=== PATIENT | male | born 1960 | race American Indian/Alaskan Native ===

== ENCOUNTER 2021-08-17 03:14 | Emergency (ER) | payer SELFPAY ==
[2021-08-17 03:22] VITALS: BP 123/89
[2021-08-17 04:46] LABS: Hematocrit 48.9 % (35.5-45.6); Hemoglobin 15.7 gm/dl (11.8-15.2); Mean Corpuscular HGB Conc 32 % (32-34); Mean Corpuscular Volume 94 fl (84-94); Platelet Count 211 K/mm3 (140-440); Red Blood Count 5.19 M/mm3 (3.65-5.03); Red Cell Distribution Width 13.9 % (13.2-15.2)
[2021-08-17 04:52] LABS: Alanine Aminotransferase 17 units/L (7-56); Albumin 3.9 g/dL (3.9-5); BUN/Creatinine Ratio 18; Blood Urea Nitrogen 16 mg/dL (9-20); Calcium 8.2 mg/dL (8.4-10.2); Hemolysis Index 11
[2021-08-17 05:02] LABS: Bilirubin,Urine NEG (Negative); Blood,Urine SM (Negative); Color,Urine Yellow (Yellow); Mucus,Urine FEW /HPF; Protein,Urine <15 mg/dL mg/dL (Negative)
[2021-08-17 05:42] LABS: Band Neutrophils # (Manual) 0.1 K/mm3; Basophils % (Manual) 0 % (0.0-1.8); Total Cells Counted 100
[2021-08-17 05:43] LABS: Platelet Estimate Consistent w Auto; RBC Morphology Normal
[2021-08-17] MEDS ORDERED: DICYCLOMINE 20 MG/2 ML INJ IM ONE (05:46)
[2021-08-17] MEDS ORDERED: SODIUM CHLORIDE 0.9% 1000 ML 1,000 ML IV ONE (05:46)
[2021-08-17] MEDS ORDERED: ONDANSETRON 4 MG/2 ML INJ IV ONE (05:46)
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
--- NOTE | 2021-08-18 17:53 | Electrocardiograph Report ---
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
== END 2021-08-17 06:54 | disposition home or self-care (01) ==
LOC: ED 03:14
DX: A05.9 Bacterial foodborne intoxication, unspecified (principal)
CPT/HCPCS: 36415; 80053; 81001; 85007; 85025; 93005; 96361; 96372; 96374; 99283; J0500; J2405; J7030; Q0162

== ENCOUNTER 2021-10-17 06:47 | Emergency (ER) | payer SELFPAY ==
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
[2021-10-17] MEDS ORDERED: predniSONE 20 MG TAB PO NR (15:00)
[2021-10-17 16:41] VITALS: BP 116/68
== END 2021-10-17 16:40 | disposition home or self-care (01) ==
LOC: ED 06:47
DX: S40.861A Insect bite (nonvenomous) of right upper arm, initial encounter (principal); W57.XXXA Bitten or stung by nonvenomous insect and other nonvenomous arthropods, initial encounter; Y93.89 Activity, other specified; Y92.89 Other specified places as the place of occurrence of the external cause; Y99.8 Other external cause status
CPT/HCPCS: 99281

== ENCOUNTER 2021-10-18 08:13 | Outpatient (CLI) | payer OTHER | END 2021-10-18 08:14 | disposition home or self-care (01) | LOC: PF 08:13 | PROVIDERS: ATTEND Internal Medicine | DX: Z02.71 Encounter for disability determination (principal) | CPT/HCPCS: 94010 ==

== ENCOUNTER 2021-10-20 22:01 | Emergency (ER) | payer SELFPAY ==
[2021-10-21 07:26] VITALS: BP 157/87
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
== END 2021-10-21 07:45 | disposition home or self-care (01) ==
LOC: ED 22:01
DX: L02.413 Cutaneous abscess of right upper limb (principal); Z79.899 Other long term (current) drug therapy
CPT/HCPCS: 99282

== ENCOUNTER 2021-10-23 17:17 | Emergency (ER) | payer SELFPAY ==
[2021-10-23 17:53] VITALS: BP 146/89
== END 2021-10-23 19:00 | disposition left against medical advice (07) ==
LOC: ED 17:17
DX: T63.301A Toxic effect of unspecified spider venom, accidental (unintentional), initial encounter (principal); Z53.21 Procedure and treatment not carried out due to patient leaving prior to being seen by health care provider; Y92.89 Other specified places as the place of occurrence of the external cause

== ENCOUNTER 2021-10-24 07:41 | Emergency (ER) | payer SELFPAY ==
[2021-10-24] MEDS ORDERED: SODIUM CHLORIDE 0.9% 1000 ML 1,000 ML IV ONE (10:38)
[2021-10-24] MEDS ORDERED: CLINDAMYCIN 600 MG/50 mL 600 MG/50 ML BAG IV ONE (10:38)
[2021-10-24] MEDS ORDERED: TETANUS,DIPH,PERTUSS(ACELL) VACCINE 0.5 ML SYRINGE IM ONE (10:39)
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
[2021-10-24] MEDS ORDERED: SODIUM CHLORIDE 0.9% IRR 500 ML BOTTLE IR SCH (11:00)
[2021-10-24] MEDS ORDERED: methylPREDNISolone Sod Succinate 125 MG/2 ML INJ IV ONE (12:07)
[2021-10-24 13:00] VITALS: BP 138/82
== END 2021-10-24 12:55 | disposition home or self-care (01) ==
LOC: ED 07:41
DX: T63.301A Toxic effect of unspecified spider venom, accidental (unintentional), initial encounter (principal); L02.413 Cutaneous abscess of right upper limb; Y92.89 Other specified places as the place of occurrence of the external cause; Z98.890 Other specified postprocedural states; F17.290 Nicotine dependence, other tobacco product, uncomplicated
CPT/HCPCS: 90471; 90715; 96365; 96375; 99283; J7030; J7502

== ENCOUNTER 2022-01-20 00:51 | Emergency (ER) | payer OTHER ==
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
[2022-01-20] MEDS ORDERED: ACETAMINOPHEN 500 MG TAB PO ONE (04:55)
[2022-01-20] MEDS ORDERED: CYCLOBENZAPRINE 10 MG TAB PO ONE (04:55)
[2022-01-20] MEDS ORDERED: IBUPROFEN 600 MG TAB PO ONE (04:55)
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
[2022-01-20 06:13] VITALS: BP 118/77
== END 2022-01-20 06:13 | disposition home or self-care (01) ==
LOC: ED 00:51
DX: S63.592A Other specified sprain of left wrist, initial encounter (principal); S83.92XA Sprain of unspecified site of left knee, initial encounter; S43.492A Other sprain of left shoulder joint, initial encounter; F17.200 Nicotine dependence, unspecified, uncomplicated; Z72.89 Other problems related to lifestyle; V89.2XXA Person injured in unspecified motor-vehicle accident, traffic, initial encounter; Y93.89 Activity, other specified; Y92.89 Other specified places as the place of occurrence of the external cause; Y99.8 Other external cause status
CPT/HCPCS: 99283